=== PATIENT | female | born 1950 | race Caucasian/White ===

== ENCOUNTER 2016-12-17 20:33 | Inpatient (IN) | payer MEDICARE, OTHER ==
[~2016-12-17] VITALS: Ht 170.2 cm; Wt 65.3 kg
[~2016-12-17 20:33] MED LIST: ACET325T53 PO; ACID1TAB4 PO; AMIN30LI2 PO; ASCO-340 PO; ASPI81TA31 PO; CARI350T PO; CEFT1VIA15 IV; CELE200C PO; CHOL20006 PO; CLOM25CA2 PO; CYAN10009 PO; DOCU250C75 PO; DULO30CA2 PO; DULO60CA45 PO; FLUT16SP2 EA NOSTRIL; GABA600T2 PO; GUAI120L24 PO; HYDR-3326 PO; HYDR28.316 RC; HYDR28CR28 TP; LACT10SO7 PO; LIDO30AD10 TD; LORA10TA7 PO; MAGN400O4 PO; MULT1TAB11 PO; NA P133E RC; Nystatin PO; OMEG500C PO; OXYB5TAB29 PO; Oxycodone Hcl PO; PANT40TA2 PO; POLY15DR27 EACHEYE; PRED20TA PO; PROC25SU3 RC; SIME80TA15 PO; SIMV20TA2 PO; VIT1CAPS32 PO
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
[2016-12-17 21:53] LABS: BASOPHILS % (AUTO) 0.2 % (0.0-2.0); EOSINOPHILS % (AUTO) 0.5 % (0.0-7.0); HEMATOCRIT 31.3 % (37.0-47.0); HEMOGLOBIN 10.6 g/dL (12.0-16.0); LYMPHOCYTES # (AUTO) 1.2 K/uL (0.8-4.8); LYMPHOCYTES % (AUTO) 19.3 % (20.5-51.5); MEAN CORPUSCULAR HEMOGLOBIN 27.2 uug (27.0-31.0); MEAN CORPUSCULAR HGB CONC 34 g/dL (32.0-37.0); MEAN CORPUSCULAR VOLUME 80.3 fL (81.0-99.0); MONOCYTES # (AUTO) 0.3 K/uL (0.1-1.30); MONOCYTES % (AUTO) 5.4 % (0.0-11.0); NEUTROPHILS # (AUTO) 4.5 K/uL (1.8-8.9); NEUTROPHILS % (AUTO) 74.6 % (38.5-71.5); PLATELET COUNT (AUTO) 427 K/uL (150-450); RED CELL DISTRIBUTION WIDTH 12.8 % (11.5-14.5)
[2016-12-17 21:57] LABS: CALCIUM 8.8 mg/dL (8.5-10.1); CREATININE 0.8 mg/dL (0.6-1.3); POTASSIUM 3.1 mmol/L (3.5-5.1)
[2016-12-17] MEDS ORDERED: CRAN450C PO (21:59)
[2016-12-17] MEDS ORDERED: MECL-102 PO (21:59)
[2016-12-17] MEDS ORDERED: ASCO500C16 PO (21:59)
[2016-12-17] MEDS ORDERED: BISA10SU61 RC (21:59)
[2016-12-17] MEDS ORDERED: POLY15DR58 OP (21:59)
[2016-12-17] MEDS ORDERED: SENN8.6T6 PO (21:59)
[2016-12-17] MEDS ORDERED: CIPR-262 PO (21:59)
[2016-12-17] MEDS ORDERED: CARI350T PO (21:59)
[2016-12-17] MEDS ORDERED: OMEG500C PO (21:59)
[2016-12-17] MEDS ORDERED: NA P133E RC (21:59)
[2016-12-17] MEDS ORDERED: SACC250C6 PO (21:59)
[2016-12-17] MEDS ORDERED: MAGN64TA7 PO (21:59)
[2016-12-17] MEDS ORDERED: LORA10TA50 PO (21:59)
[2016-12-17] MEDS ORDERED: LORA-259 PO (21:59)
[2016-12-17] MEDS ORDERED: OLOP5DRO EACHEYE (21:59)
[2016-12-17] MEDS ORDERED: FENT1PAT23 (21:59)
[2016-12-17] MEDS ORDERED: MAG-5 PO (21:59)
[2016-12-17] MEDS ORDERED: OXYB10TA PO (21:59)
[2016-12-17] MEDS ORDERED: SIMV10TA6 PO (21:59)
[2016-12-17 22:13] LABS: THYROID STIMULATING HORMONE 0.094 mIU/mL (0.358-3.740)
[2016-12-17 23:59] LABS: *BILIRUBIN,URIN NEGATIVE (NEGATIVE); *BLOOD, URINE 1+ (NEGATIVE); *COLOR,URINE YELLOW (YELLOW); *KETONES,URINE NEGATIVE (NEGATIVE); *PROTEIN,URINE TRACE (NEGATIVE); *UROBILINOGEN,URINE 0.2 E.U./dl (NORMAL); LEUKOCYTE ESTERASE ,URINE 3+ (NEGATIVE); NITRITE, URINE NEGATIVE (NEGATIVE); UGLUCOSE NEGATIVE (NEGATIVE)
[2016-12-18] MEDS ORDERED: POTASSIUM CHLORIDE 20 MEQ POWDER PACKET GT ONE
--- NOTE | 2016-12-18 00:05 | NUR ---
Unable to give report to nursing unit at this time, Nursing Compounding Technician notified.
[2016-12-18 00:09] LABS: *CLARITY,URINE SLIGHTLY CLOUDY (CLEAR); BACTERIA,URINE MANY /HPF (NONE SEEN); SQUAMOUS EPITHELIAL CELL,UR FEW /HPF (NONE SEEN); WBC,URINE TNTC /HPF (0-3)
[2016-12-18] MEDS ORDERED: POTASSIUM CHLORIDE 20 MEQ POWDER PACKET PO ONE (00:15)
[2016-12-18] MEDS ORDERED: NITROFURANTOIN/NITROFURAN MAC 100 MG CAPSULE ONE (00:37)
[2016-12-18] MEDS: NITROFURANTOIN/NITROFURAN MAC 100 MG CAPSULE PO SCH ×3 (00:48→20:37)
--- NOTE | 2016-12-18 00:51 | NUR ---
Pt. admitted to GPS, under care of Dr. Humphrey Belongs List completed
[2016-12-18] MEDS: TEMAZEPAM 7.5 MG CAPSULE PO PRN ×2 (01:42→22:50)
[2016-12-18] MEDS: ACETAMINOPHEN 325 MG TABLET PO PRN (01:42)
[2016-12-18] MEDS ORDERED: MAGNESIUM HYDROXIDE 30 ML LIQUID UDC PO PRN (01:45)
[2016-12-18 01:46] VITALS: BP 132/78
[2016-12-18] MEDS ORDERED: TEMAZEPAM 7.5 MG CAPSULE ONE (01:46)
[2016-12-18] MEDS ORDERED: ACETAMINOPHEN 325 MG TABLET ONE (01:46)
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
[2016-12-18 07:30] VITALS: BP 169/74
--- NOTE | 2016-12-18 08:27 | NUR ---
SPOKE WITH KIARA ORNELAS HE WILL RECONCILE MEDS.
[2016-12-18] MEDS: GABAPENTIN 300 MG CAPSULE PO SCH ×2 (13:00→17:56)
[2016-12-18] MEDS: DIVALPROEX SPRINKLE 125 MG CAP.SPRINK PO SCH ×2 (13:00→20:37)
[2016-12-18] MEDS: LORAZEPAM 0.5 MG TABLET PO PRN (14:34)
[2016-12-18 16:00] VITALS: BP 126/85
[2016-12-18] MEDS: DULOXETINE 60 MG CAPSULE.DR PO SCH (20:37)
[2016-12-18 20:41] VITALS: BP 110/58
[2016-12-18] MEDS ORDERED: DULOXETINE 60 MG CAPSULE.DR PO SCH (21:00)
--- NOTE | 2016-12-18 22:50 | NUR ---
GPS: PATIENT C/O INSOMNIA. RESTORIL 7.5 MG PO GIVEN PER PATIENT REQUEST.
--- NOTE | 2016-12-18 23:50 | NUR ---
GPS: PATIENT SLEEPING NOW. PRN EFFECTIVE FOR SLEEP.
[2016-12-19] MEDS: LORAZEPAM 0.5 MG TABLET PO PRN ×2 (02:01→11:39)
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
[2016-12-19 07:30] VITALS: BP 118/58
[2016-12-19] MEDS: NITROFURANTOIN/NITROFURAN MAC 100 MG CAPSULE PO SCH ×3 (07:58→20:46)
[2016-12-19] MEDS: DIVALPROEX SPRINKLE 125 MG CAP.SPRINK PO SCH ×2 (08:10→20:46)
[2016-12-19] MEDS: GABAPENTIN 300 MG CAPSULE PO SCH ×3 (08:10→17:54)
[2016-12-19 09:04] VITALS: BP 118/58
[2016-12-19] MEDS ORDERED: DIVALPROEX SPRINKLE 125 MG CAP.SPRINK PO ONE (11:45)
--- NOTE | 2016-12-19 12:04 | NUR ---
Initial discharge instructions: The patient resides at [facility] ([facility]) [[address] [place] [address] ]. Spoke with Sharee in admissions at the facility who stated that they will accept the patient back upon discharge. SANTI spoke with the patient's son/VIKY Dong or who stated that he would like for the patient to return to the facility upon discharge. SS will speak with the patient, family, and MD regarding most appropriate discharge plan. SS will form a safe and proper discharge.
[2016-12-19 15:36] VITALS: BP 111/53
[2016-12-19] MEDS ORDERED: FLEET ENEMA 133 ML BOTTLE RC PRN (16:45)
[2016-12-19] MEDS ORDERED: OXYCODONE HCL PO PRN (16:45)
[2016-12-19] MEDS ORDERED: LIDOCAINE 5% PATCH TD PRN (16:45)
[2016-12-19] MEDS ORDERED: LACTULOSE 20 G/30 ML LIQUID UDC PO PRN (16:45)
[2016-12-19] MEDS ORDERED: SENNOSIDES 1 TABLET PO PRN (16:45)
[2016-12-19] MEDS ORDERED: BISACODYL 10 MG SUPP.RECT RC PRN (16:45)
[2016-12-19] MEDS ORDERED: MAGNESIUM CHLORIDE 71.5 MG PO SCH (17:00)
[2016-12-19] MEDS ORDERED: DOCUSATE SODIUM 250 MG CAPSULE PO SCH (17:00)
[2016-12-19] MEDS ORDERED: Medication Not On Formulary EA (Oxybutynin Chloride (Oxybutynin Chloride Er) 10 MG) PO SCH (17:00)
[2016-12-19] MEDS ORDERED: Medication Not On Formulary EA (Gabapentin 600 MG) PO SCH (17:00)
[2016-12-19] MEDS ORDERED: OXYCODONE HCL 5 MG TABLET PO PRN (17:15)
[2016-12-19] MEDS ORDERED: GABAPENTIN 300 MG CAPSULE PO SCH (17:15)
[2016-12-19] MEDS: OLOPATADINE 0.1% OPHT DROP 5 ML BOTTLE EACHEYE SCH (18:03)
[2016-12-19 20:27] VITALS: BP 101/68
[2016-12-19] MEDS: MUPIROCIN 2% OINT 22 GM TUBE NS SCH (20:45)
[2016-12-19] MEDS: DOCUSATE SODIUM 100 MG CAPSULE PO SCH (20:45)
[2016-12-19] MEDS: CARISOPRODOL 350 MG TABLET PO SCH (20:46)
[2016-12-19] MEDS: DULOXETINE 60 MG CAPSULE.DR PO SCH (20:46)
[2016-12-19] MEDS: SIMVASTATIN 10 MG TABLET PO SCH (20:47)
[2016-12-19] MEDS: TEMAZEPAM 7.5 MG CAPSULE PO PRN (22:57)
[2016-12-19] MEDS: ACETAMINOPHEN 325 MG TABLET PO PRN (22:57)
[2016-12-20 07:30] VITALS: BP 107/68
[2016-12-20] MEDS ORDERED: CHOLECALCIFEROL 1000 UNIT PO SCH (09:00)
[2016-12-20] MEDS ORDERED: Medication Not On Formulary EA (Ascorbic Acid (Vitamin C CAPSULE) 500 MG) PO SCH (09:00)
[2016-12-20] MEDS ORDERED: Medication Not On Formulary EA (Loratadine 10 MG) PO SCH (09:00)
[2016-12-20] MEDS ORDERED: OXYBUTYNIN XL 5 MG TABSR PO SCH (09:00)
[2016-12-20] MEDS ORDERED: [UNRECOGNIZED DRUG - OTHER] PO SCH (09:00)
[2016-12-20] MEDS ORDERED: Medication Not On Formulary EA (Omega-3 Fatty Acids (Fish Oil) 500 MG) PO SCH (09:00)
[2016-12-20] MEDS: OLOPATADINE 0.1% OPHT DROP 5 ML BOTTLE EACHEYE SCH ×2 (09:16→17:59)
[2016-12-20] MEDS: ASPIRIN 81 MG TAB.CHEW PO SCH (09:17)
[2016-12-20] MEDS: CHOLECALCIFEROL 1,000 UNIT TABLET PO SCH (09:17)
[2016-12-20] MEDS: DIVALPROEX SPRINKLE 125 MG CAP.SPRINK PO SCH ×2 (09:17→20:27)
[2016-12-20] MEDS: LORATADINE 10 MG TABLET PO SCH (09:17)
[2016-12-20] MEDS: NITROFURANTOIN/NITROFURAN MAC 100 MG CAPSULE PO SCH ×2 (09:17→20:27)
[2016-12-20] MEDS: PANTOPRAZOLE SODIUM 40 MG TABLET.DR PO SCH (09:17)
[2016-12-20] MEDS: DOCUSATE SODIUM 100 MG CAPSULE PO SCH ×2 (09:17→20:27)
[2016-12-20] MEDS: OXYBUTYNIN XL 5 MG TABSR PO SCH (09:18)
[2016-12-20] MEDS: OMEGA-3 FATTY ACIDS/FISH OIL CAPSULE PO SCH (09:18)
[2016-12-20] MEDS: GABAPENTIN 300 MG CAPSULE PO SCH ×3 (09:18→17:58)
[2016-12-20] MEDS: MAGNESIUM CHLORIDE 64 MG TABLET.SA PO SCH ×3 (09:18→17:58)
[2016-12-20] MEDS: MUPIROCIN 2% OINT 22 GM TUBE NS SCH ×2 (09:19→20:28)
[2016-12-20] MEDS: ASCORBIC ACID 500 MG TABLET PO SCH (09:19)
[2016-12-20] MEDS: HYDROCODONE/APAP 5-325MG TABLET PO PRN (12:08)
[2016-12-20] MEDS: FENTANYL 100MCG/HR PATCH TD SCH (14:52)
[2016-12-20 15:10] VITALS: BP 110/55
[2016-12-20] MEDS: CARISOPRODOL 350 MG TABLET PO SCH (20:27)
[2016-12-20] MEDS: SIMVASTATIN 10 MG TABLET PO SCH (20:27)
[2016-12-20] MEDS: DULOXETINE 60 MG CAPSULE.DR PO SCH (20:27)
[2016-12-20 20:30] VITALS: BP 116/55
[2016-12-21] MEDS: HYDROCODONE/APAP 5-325MG TABLET PO PRN ×3 (03:54→18:17)
[2016-12-21] MEDS: PANTOPRAZOLE SODIUM 40 MG TABLET.DR PO SCH (06:37)
[2016-12-21 07:30] VITALS: BP 108/45
[2016-12-21 08:13] LABS: EOSINOPHILS # (AUTO) 0.1 K/uL (0.0-0.7); EOSINOPHILS % (AUTO) 0.6 % (0.0-7.0); HEMATOCRIT 37.4 % (37.0-47.0); HEMOGLOBIN 12.4 g/dL (12.0-16.0); LYMPHOCYTES # (AUTO) 1.9 K/uL (0.8-4.8); LYMPHOCYTES % (AUTO) 16.4 % (20.5-51.5); MEAN CORPUSCULAR HEMOGLOBIN 27.1 uug (27.0-31.0); MEAN CORPUSCULAR HGB CONC 33 g/dL (32.0-37.0); MEAN CORPUSCULAR VOLUME 81.7 fL (81.0-99.0); MONOCYTES # (AUTO) 0.6 K/uL (0.1-1.30); MONOCYTES % (AUTO) 4.9 % (0.0-11.0); NEUTROPHILS # (AUTO) 9.1 K/uL (1.8-8.9); NEUTROPHILS % (AUTO) 78.1 % (38.5-71.5); RED CELL DISTRIBUTION WIDTH 13.2 % (11.5-14.5)
[2016-12-21 08:25] LABS: ALBUMIN 3.4 g/dL (3.4-5.0); BILIRUBIN,TOTAL 0.5 mg/dL (0.2-1.0); CALCIUM 8.8 mg/dL (8.5-10.1); CREATININE 0.9 mg/dL (0.6-1.3); MAGNESIUM 2.4 mg/dL (1.8-2.4); PHOSPHOROUS 3.2 mg/dL (2.5-4.9)
[2016-12-21 08:26] LABS: RED BLOOD CELL COUNT(AUTO) 4.58 MIL/uL (4.20-5.40); WHITE BLOOD COUNT (AUTO) 11.8 K/uL (4.0-11.2)
[2016-12-21 08:27] LABS: PLATELET COUNT (AUTO) 576 K/uL (150-450)
[2016-12-21] MEDS: GABAPENTIN 300 MG CAPSULE PO SCH ×3 (08:48→17:27)
[2016-12-21] MEDS: NITROFURANTOIN/NITROFURAN MAC 100 MG CAPSULE PO SCH ×2 (08:48→20:22)
[2016-12-21] MEDS: OMEGA-3 FATTY ACIDS/FISH OIL CAPSULE PO SCH (08:48)
[2016-12-21] MEDS: DIVALPROEX SPRINKLE 125 MG CAP.SPRINK PO SCH ×2 (08:48→20:22)
[2016-12-21] MEDS: LORATADINE 10 MG TABLET PO SCH (08:48)
[2016-12-21] MEDS: ASCORBIC ACID 500 MG TABLET PO SCH (08:49)
[2016-12-21] MEDS: ASPIRIN 81 MG TAB.CHEW PO SCH (08:49)
[2016-12-21] MEDS: DOCUSATE SODIUM 100 MG CAPSULE PO SCH ×2 (08:49→20:21)
[2016-12-21] MEDS: OXYBUTYNIN XL 5 MG TABSR PO SCH (08:49)
[2016-12-21] MEDS: CHOLECALCIFEROL 1,000 UNIT TABLET PO SCH (08:49)
[2016-12-21] MEDS: MUPIROCIN 2% OINT 22 GM TUBE NS SCH ×2 (08:50→21:48)
[2016-12-21] MEDS: MAGNESIUM CHLORIDE 64 MG TABLET.SA PO SCH ×3 (08:50→17:27)
[2016-12-21] MEDS: OLOPATADINE 0.1% OPHT DROP 5 ML BOTTLE EACHEYE SCH ×2 (08:50→17:28)
[2016-12-21 08:59] LABS: POTASSIUM 2.5 mmol/L (3.5-5.1)
--- NOTE | 2016-12-21 09:01 | NUR ---
RECEIVED CALL FROM LAB TO REPORT RESULT OF CRITICAL LAB, POTASSIUM LOW 2.5. CALLED EPIC EXCHANGE, STATED WILL PAGE DR. GRAFF. AWAITING CALL BACK. PT ASYMPTOMATIC. V/S STABLE.
--- NOTE | 2016-12-21 09:06 | NUR ---
DR. GRAFF CALLED BACK WITH ORDER FOR POTASSIUM 40MEQ X1 DOSE. NOTED AND WILL CARRY OUT.
[2016-12-21] MEDS ORDERED: POTASSIUM CHLORIDE 20 MEQ TAB.PRT.SR PO ONE (09:15)
[2016-12-21 15:31] VITALS: BP 103/41
[2016-12-21 19:55] VITALS: BP 111/68
[2016-12-21] MEDS: DULOXETINE 60 MG CAPSULE.DR PO SCH (20:22)
[2016-12-21] MEDS: SIMVASTATIN 10 MG TABLET PO SCH (20:22)
[2016-12-21] MEDS: CARISOPRODOL 350 MG TABLET PO SCH (20:22)
[2016-12-21] MEDS: MAG HYDROX/AL HYDROX/SIMETH 30 ML LIQUID UDC PO PRN (20:46)
[2016-12-21] MEDS: Z GUARD REMEDY PASTE 57 GM TUBE TOP SCH (21:42)
[2016-12-22] MEDS: MECLIZINE HCL 25 MG TABLET PO PRN (02:52)
[2016-12-22] MEDS: MAG HYDROX/AL HYDROX/SIMETH 30 ML LIQUID UDC PO PRN ×2 (02:52→17:10)
[2016-12-22] MEDS: PANTOPRAZOLE SODIUM 40 MG TABLET.DR PO SCH (06:30)
[2016-12-22 07:02] LABS: EOSINOPHILS # (AUTO) 0.1 K/uL (0.0-0.7); LYMPHOCYTES # (AUTO) 1.4 K/uL (0.8-4.8); MONOCYTES # (AUTO) 0.3 K/uL (0.1-1.30)
[2016-12-22 07:07] LABS: BASOPHILS % (AUTO) 0.6 % (0.0-2.0); HEMOGLOBIN 11.6 g/dL (12.0-16.0); LYMPHOCYTES % (AUTO) 18.4 % (20.5-51.5); MEAN CORPUSCULAR HGB CONC 34 g/dL (32.0-37.0); MEAN CORPUSCULAR VOLUME 81.8 fL (81.0-99.0); MONOCYTES % (AUTO) 3.5 % (0.0-11.0); NEUTROPHILS # (AUTO) 5.7 K/uL (1.8-8.9); NEUTROPHILS % (AUTO) 76.5 % (38.5-71.5); RED BLOOD CELL COUNT(AUTO) 4.16 MIL/uL (4.20-5.40)
[2016-12-22 07:09] LABS: PLATELET COUNT (AUTO) 323 K/uL (150-450); WHITE BLOOD COUNT (AUTO) 7.5 K/uL (4.0-11.2)
[2016-12-22 07:26] LABS: CALCIUM 8.5 mg/dL (8.5-10.1); CREATININE 0.7 mg/dL (0.6-1.3)
[2016-12-22 07:29] LABS: POTASSIUM 2.8 mmol/L (3.5-5.1)
[2016-12-22 07:53] VITALS: BP 106/60
[2016-12-22] MEDS: NITROFURANTOIN/NITROFURAN MAC 100 MG CAPSULE PO SCH ×2 (08:35→20:24)
[2016-12-22] MEDS: DOCUSATE SODIUM 100 MG CAPSULE PO SCH ×2 (08:35→20:24)
[2016-12-22] MEDS: LORATADINE 10 MG TABLET PO SCH (08:35)
[2016-12-22] MEDS: MAGNESIUM CHLORIDE 64 MG TABLET.SA PO SCH ×3 (08:35→17:10)
[2016-12-22] MEDS: OMEGA-3 FATTY ACIDS/FISH OIL CAPSULE PO SCH (08:35)
[2016-12-22] MEDS: GABAPENTIN 300 MG CAPSULE PO SCH ×3 (08:35→17:10)
[2016-12-22] MEDS: ASPIRIN 81 MG TAB.CHEW PO SCH (08:35)
[2016-12-22] MEDS: CHOLECALCIFEROL 1,000 UNIT TABLET PO SCH (08:35)
[2016-12-22] MEDS: DIVALPROEX SPRINKLE 125 MG CAP.SPRINK PO SCH ×2 (08:36→20:24)
[2016-12-22] MEDS: ASCORBIC ACID 500 MG TABLET PO SCH (08:36)
[2016-12-22] MEDS: Z GUARD REMEDY PASTE 57 GM TUBE TOP SCH ×2 (08:38→20:34)
[2016-12-22] MEDS: MUPIROCIN 2% OINT 22 GM TUBE NS SCH ×2 (08:38→20:31)
[2016-12-22] MEDS: OLOPATADINE 0.1% OPHT DROP 5 ML BOTTLE EACHEYE SCH ×2 (08:42→17:11)
--- NOTE | 2016-12-22 09:24 | NUR ---
GPS: Nursing Notes: Lab. Critical Level: Dr. Tobias paged to his exchange , this is a second page to his exchange regarding potassium critical level per lab. report: 2.8, still waiting for further orders, continue to monitor Patient.
--- NOTE | 2016-12-22 10:06 | NUR ---
GPS: Nursing Notes: Critical Potassium level: Dr. Tobias returned phone call at this time and order Potassium 40mEq PO X1, continue to monitor patient, continue with treatment plan.
[2016-12-22] MEDS ORDERED: POTASSIUM CHLORIDE 20 MEQ TAB.PRT.SR PO ONE (10:15)
[2016-12-22 15:47] VITALS: BP 93/55
[2016-12-22 20:19] VITALS: BP 112/57
[2016-12-22] MEDS: SIMVASTATIN 10 MG TABLET PO SCH (20:24)
[2016-12-22] MEDS: DULOXETINE 60 MG CAPSULE.DR PO SCH (20:24)
[2016-12-22] MEDS: CARISOPRODOL 350 MG TABLET PO SCH (20:24)
[2016-12-22] MEDS: NYSTATIN SUSPENSION 5 ML LIQUID UDC PO SCH (20:25)
[2016-12-23] MEDS: PANTOPRAZOLE SODIUM 40 MG TABLET.DR PO SCH (06:33)
[2016-12-23 07:56] VITALS: BP 107/63
[2016-12-23] MEDS: OLOPATADINE 0.1% OPHT DROP 5 ML BOTTLE EACHEYE SCH ×2 (08:35→17:22)
[2016-12-23] MEDS: ASCORBIC ACID 500 MG TABLET PO SCH (08:35)
[2016-12-23] MEDS: MUPIROCIN 2% OINT 22 GM TUBE NS SCH ×2 (08:35→20:16)
[2016-12-23] MEDS: DIVALPROEX SPRINKLE 125 MG CAP.SPRINK PO SCH ×2 (08:35→20:15)
[2016-12-23] MEDS: CHOLECALCIFEROL 1,000 UNIT TABLET PO SCH (08:35)
[2016-12-23] MEDS: LORATADINE 10 MG TABLET PO SCH (08:35)
[2016-12-23] MEDS: MAGNESIUM CHLORIDE 64 MG TABLET.SA PO SCH ×3 (08:36→17:14)
[2016-12-23] MEDS: NYSTATIN SUSPENSION 5 ML LIQUID UDC PO SCH ×4 (08:36→20:15)
[2016-12-23] MEDS: OMEGA-3 FATTY ACIDS/FISH OIL CAPSULE PO SCH (08:36)
[2016-12-23] MEDS: Z GUARD REMEDY PASTE 57 GM TUBE TOP SCH ×2 (08:36→20:15)
[2016-12-23] MEDS: DOCUSATE SODIUM 100 MG CAPSULE PO SCH ×2 (08:36→20:14)
[2016-12-23] MEDS: NITROFURANTOIN/NITROFURAN MAC 100 MG CAPSULE PO SCH ×2 (08:36→20:15)
[2016-12-23] MEDS: MECLIZINE HCL 25 MG TABLET PO PRN (08:36)
[2016-12-23] MEDS: GABAPENTIN 300 MG CAPSULE PO SCH ×3 (08:36→17:14)
[2016-12-23] MEDS: ASPIRIN 81 MG TAB.CHEW PO SCH (08:36)
[2016-12-23] MEDS: FENTANYL 100MCG/HR PATCH TD SCH (13:24)
[2016-12-23 15:31] VITALS: BP 102/53
[2016-12-23 20:00] VITALS: BP 100/55
[2016-12-23] MEDS: SIMVASTATIN 10 MG TABLET PO SCH (20:14)
[2016-12-23] MEDS: CARISOPRODOL 350 MG TABLET PO SCH (20:14)
[2016-12-23] MEDS: DULOXETINE 60 MG CAPSULE.DR PO SCH (20:15)
[2016-12-23] MEDS: TEMAZEPAM 7.5 MG CAPSULE PO PRN (23:15)
[2016-12-24] MEDS: PANTOPRAZOLE SODIUM 40 MG TABLET.DR PO SCH (06:45)
[2016-12-24 07:30] VITALS: BP 128/71
[2016-12-24] MEDS: OLOPATADINE 0.1% OPHT DROP 5 ML BOTTLE EACHEYE SCH ×2 (08:45→17:43)
[2016-12-24] MEDS: OMEGA-3 FATTY ACIDS/FISH OIL CAPSULE PO SCH (08:45)
[2016-12-24] MEDS: MAGNESIUM CHLORIDE 64 MG TABLET.SA PO SCH ×3 (08:45→17:22)
[2016-12-24] MEDS: ASCORBIC ACID 500 MG TABLET PO SCH (08:46)
[2016-12-24] MEDS: DOCUSATE SODIUM 100 MG CAPSULE PO SCH ×2 (08:46→20:18)
[2016-12-24] MEDS: CHOLECALCIFEROL 1,000 UNIT TABLET PO SCH (08:46)
[2016-12-24] MEDS: GABAPENTIN 300 MG CAPSULE PO SCH ×3 (08:46→17:20)
[2016-12-24] MEDS: NITROFURANTOIN/NITROFURAN MAC 100 MG CAPSULE PO SCH (08:46)
[2016-12-24] MEDS: DIVALPROEX SPRINKLE 125 MG CAP.SPRINK PO SCH ×2 (08:46→20:14)
[2016-12-24] MEDS: LORATADINE 10 MG TABLET PO SCH (08:46)
[2016-12-24] MEDS: ASPIRIN 81 MG TAB.CHEW PO SCH (08:46)
[2016-12-24] MEDS: MUPIROCIN 2% OINT 22 GM TUBE NS SCH ×2 (08:47→20:13)
[2016-12-24] MEDS: NYSTATIN SUSPENSION 5 ML LIQUID UDC PO SCH ×4 (09:50→20:17)
[2016-12-24] MEDS: Z GUARD REMEDY PASTE 57 GM TUBE TOP SCH ×2 (09:50→20:19)
[2016-12-24 14:27] LABS: *BILIRUBIN,URIN NEGATIVE (NEGATIVE); *BLOOD, URINE Trace-lysed (NEGATIVE); *CLARITY,URINE SLIGHTLY CLOUDY (CLEAR); *COLOR,URINE YELLOW (YELLOW); *KETONES,URINE TRACE (NEGATIVE); *PROTEIN,URINE NEGATIVE (NEGATIVE); *UROBILINOGEN,URINE 0.2 E.U./dl (NORMAL); LEUKOCYTE ESTERASE ,URINE 2+ (NEGATIVE); NITRITE, URINE NEGATIVE (NEGATIVE); UGLUCOSE NEGATIVE (NEGATIVE)
[2016-12-24 15:30] LABS: WBC,URINE 80-100 /HPF (0-3)
--- NOTE | 2016-12-24 15:30 | NUR ---
GPS./RN- CONTACTED LAB. URINALYSIS STILL NOT COMPLETE/NEED TO VERIFY IF ANY INFECTION IS STILL PRESENT. PATIENT WITH CURRENT HISTORY OF ESBL IN URINE, COMPLETED ATB TX.
[2016-12-24 15:31] LABS: MUCUS,URINE FEW /LPF (0-FEW); SQUAMOUS EPITHELIAL CELL,UR FEW /HPF (NONE SEEN)
--- NOTE | 2016-12-24 15:52 | NUR ---
DC Note: If the patient is medically cleared, she must be discharged today back to [facility] ([facility]) [[address] [place] [address] ]. Spoke with Sharee in admissions at the facility who stated that they will be able to accept the patient back today and place her in an isolation room. SW called the patient's son/DPJAMES Dong or and left him a message informing him of the discharge plan. The patient will follow-up at the facility with director of litigation Dr. David Fletcher, psychiatrist Dr. Canales, and psychologist Dr. Hanson at the facility.
[2016-12-24 16:00] VITALS: BP 99/54
[2016-12-24 20:00] VITALS: BP 108/61
[2016-12-24] MEDS: DULOXETINE 60 MG CAPSULE.DR PO SCH (20:14)
[2016-12-24] MEDS: SIMVASTATIN 10 MG TABLET PO SCH (20:15)
[2016-12-24] MEDS: CARISOPRODOL 350 MG TABLET PO SCH (20:18)
[2016-12-25] MEDS: PANTOPRAZOLE SODIUM 40 MG TABLET.DR PO SCH (06:42)
--- NOTE | 2016-12-25 06:52 | NUR ---
GPS: REMAIN CALM AND COOPERATIVE.ASSISTED TO USE BATHROOM THEN BACK TO BED. SLEPT 6:30 HRS THROUGH THE NIGHT. CONTINUE PLAN OF CARE. NO BEHAVIOR PROBLEM NOTED.
[2016-12-25 07:30] VITALS: BP 120/57
[2016-12-25] MEDS: MUPIROCIN 2% OINT 22 GM TUBE NS SCH (08:44)
[2016-12-25] MEDS: ASCORBIC ACID 500 MG TABLET PO SCH (08:45)
[2016-12-25] MEDS: GABAPENTIN 300 MG CAPSULE PO SCH ×2 (08:45→12:31)
[2016-12-25] MEDS: DOCUSATE SODIUM 100 MG CAPSULE PO SCH (08:45)
[2016-12-25] MEDS: ASPIRIN 81 MG TAB.CHEW PO SCH (08:45)
[2016-12-25] MEDS: DIVALPROEX SPRINKLE 125 MG CAP.SPRINK PO SCH (08:45)
[2016-12-25] MEDS: LORATADINE 10 MG TABLET PO SCH (08:45)
[2016-12-25] MEDS: CHOLECALCIFEROL 1,000 UNIT TABLET PO SCH (08:45)
[2016-12-25] MEDS: MAGNESIUM CHLORIDE 64 MG TABLET.SA PO SCH ×2 (08:45→12:31)
[2016-12-25] MEDS: NYSTATIN SUSPENSION 5 ML LIQUID UDC PO SCH ×2 (08:48→12:30)
[2016-12-25] MEDS: OMEGA-3 FATTY ACIDS/FISH OIL CAPSULE PO SCH (08:48)
[2016-12-25 08:54] LABS: BASOPHILS % (AUTO) 0.4 % (0.0-2.0); EOSINOPHILS # (AUTO) 0.2 K/uL (0.0-0.7); EOSINOPHILS % (AUTO) 2.2 % (0.0-7.0); HEMATOCRIT 40.4 % (37.0-47.0); HEMOGLOBIN 13.5 g/dL (12.0-16.0); LYMPHOCYTES # (AUTO) 1.9 K/uL (0.8-4.8); LYMPHOCYTES % (AUTO) 17.4 % (20.5-51.5); MEAN CORPUSCULAR HEMOGLOBIN 27.5 uug (27.0-31.0); MEAN CORPUSCULAR HGB CONC 33 g/dL (32.0-37.0); MEAN CORPUSCULAR VOLUME 82.5 fL (81.0-99.0); MONOCYTES # (AUTO) 0.4 K/uL (0.1-1.30); MONOCYTES % (AUTO) 3.6 % (0.0-11.0); NEUTROPHILS # (AUTO) 8.3 K/uL (1.8-8.9); NEUTROPHILS % (AUTO) 76.4 % (38.5-71.5); PLATELET COUNT (AUTO) 569 K/uL (150-450); RED CELL DISTRIBUTION WIDTH 13.4 % (11.5-14.5); WHITE BLOOD COUNT (AUTO) 10.8 K/uL (4.0-11.2)
[2016-12-25] MEDS ORDERED: SULFAMETH/TRIMETH 800/160 MG TABLET PO SCH (09:00)
[2016-12-25 09:10] LABS: ALBUMIN 3.7 g/dL (3.4-5.0); BILIRUBIN,TOTAL 0.3 mg/dL (0.2-1.0); CREATININE 0.9 mg/dL (0.6-1.3); MAGNESIUM 2.7 mg/dL (1.8-2.4); PHOSPHOROUS 3.3 mg/dL (2.5-4.9); POTASSIUM 2.9 mmol/L (3.5-5.1); TOTAL PROTEIN, SERUM 7.3 g/dL (6.4-8.2)
[2016-12-25] MEDS: OLOPATADINE 0.1% OPHT DROP 5 ML BOTTLE EACHEYE SCH (09:45)
[2016-12-25] MEDS: Z GUARD REMEDY PASTE 57 GM TUBE TOP SCH (09:46)
--- NOTE | 2016-12-25 10:22 | NUR ---
DC Note: The patient will be discharged today back to [facility] ([facility]) [[address] [place] [address] ]. Spoke with Sharee in admissions today at the facility who stated that they will be able to accept the patient back today and place her in an isolation room. SW called the patient's son/VIKY Dong / and left him a message informing him of the discharge plan. The patient will follow-up at the facility with urogynecology physician Dr. David Fletcher, psychiatrist Dr. Canales, and psychologist Dr. Hanson at the facility.
--- NOTE | 2016-12-25 13:13 | NUR ---
1000 CALLED [facility], SNF SPOKE TO CARON PEÑALOZA RN INFORMED THAT PATIENT WILL BE DISCHARGE BACK TO THEIR FACILITY VIA AMBULANCE AT 1300. REPORT GIVEN TO CARON REGARDING PATIENT MEDICAL AND MENTAL STATUS, PATIENT ALERT AND OX 3, DENIES SUICIDAL IDEATION/ DENIES /DENIES HOMICIDAL IDEATION. NO AV HALLUCINATIONS/ NO DELUSIONS NOTED. ALSO NOTIFIED THAT PATIENT HAS ESBL INFECTION IN URINE AND ON ANTIBIOTIC SECOND COURSE OF TREATMENT WHICH WAS STARTED YESTERDAY EVENING. ALSO, PATIENT IS HAVING MRSA NARES AND ON GOING TREATMNET , BACTROBAN OINTMENT ORDERED, THE NURSE VERBALIZED UNDERSTANDING. 1300 PATIENT PICKED UP BY AMBULANCE AND DISCHARGE TO THE FACILITY MENTIONED ABOVE IN A STABLE CONDITION.
== END 2016-12-25 13:00 | DRG 885 ==
LOC: ER 20:36 → GPS 12-18
PROVIDERS: ADMIT Psychiatry & Neurology Psychosomatic Medicine; ATTEND Internal Medicine
DX: F29 Unspecified psychosis not due to a substance or known physiological condition (principal); D68.59 Other primary thrombophilia; N39.0 Urinary tract infection, site not specified; F32.3 Major depressive disorder, single episode, severe with psychotic features; F03.91 Unspecified dementia, unspecified severity, with behavioral disturbance; B37.0 Candidal stomatitis; K21.9 Gastro-esophageal reflux disease without esophagitis; I10 Essential (primary) hypertension; B96.20 Unspecified Escherichia coli [E. coli] as the cause of diseases classified elsewhere; D53.9 Nutritional anemia, unspecified; E78.5 Hyperlipidemia, unspecified; E87.6 Hypokalemia; F32.9 Major depressive disorder, single episode, unspecified; M19.90 Unspecified osteoarthritis, unspecified site; N32.81 Overactive bladder; M54.10 Radiculopathy, site unspecified; Z87.440 Personal history of urinary (tract) infections; F43.10 Post-traumatic stress disorder, unspecified; G62.9 Polyneuropathy, unspecified; F39 Unspecified mood [affective] disorder; Z22.322 Carrier or suspected carrier of Methicillin resistant Staphylococcus aureus; I51.7 Cardiomegaly; F41.9 Anxiety disorder, unspecified; D72.829 Elevated white blood cell count, unspecified; D47.3 Essential (hemorrhagic) thrombocythemia; M79.7 Fibromyalgia; G89.29 Other chronic pain; R73.9 Hyperglycemia, unspecified; F19.90 Other psychoactive substance use, unspecified, uncomplicated
CPT/HCPCS: 36415; 70450; 71010; 71020; 71250; 73060; 83735; 84100; 84443; 85025; 85610; 87077; 87086; 93005; 97001; 97116; 97530; A4663; J8597